=== PATIENT | female | born 1985 | race Caucasian/White ===

== ENCOUNTER 2016-09-08 00:54 | Inpatient (IN) | payer OTHER ==
[~2016-09-08] VITALS: Ht 160 cm; Wt 87.1 kg
[~2016-09-08 00:54] MED LIST: DCL500C PO; HYDR-4150 PO; IBUP800T28 PO; PREN1TAB69 PO; SERT20OR6 PO
[2016-09-09] MEDS ORDERED: Carboprost 250 mCg/mL Inj IM PRN (20:10)
[2016-09-09] MEDS ORDERED: Sodium Chloride LOK Flush 10 mL Syringe IVFLUSH PRN (20:10)
[2016-09-09] MEDS ORDERED: Methylergonovine 0.2 mg/mL Inj IM PRN (20:10)
[2016-09-09] MEDS ORDERED: Lactated Ringer's 1,000 ML IV PRN (20:10)
[2016-09-09] MEDS ORDERED: Ondansetron 2 mg/mL 2 mL Inj IVPUSH PRN ×2 (20:10→21:05)
[2016-09-09] MEDS ORDERED: Oxytocin 30 Units/500 mL LR 30 UNITS in IV Premix 1 EACH IV PRN (20:10)
[2016-09-09] MEDS ORDERED: Hemorrhage Kit, Post Partum XX ONE (20:10)
[2016-09-09] MEDS ORDERED: Oxytocin 10 Unit/mL Inj IM PRN (20:10)
[2016-09-09 20:48] LABS: Mean Corpuscular Volume 88.2 fL (81-100)
[2016-09-09] MEDS ORDERED: Lactated Ringer's 1,000 ML IV SCH (21:02)
[2016-09-09] MEDS ORDERED: Lactated Ringer's 500 ML IV ONE (21:02)
[2016-09-09] MEDS ORDERED: EPHEDrine Sulfate 50 mg/mL Inj IVPUSH PRN (21:05)
[2016-09-09] MEDS ORDERED: fentaNYL 2 mCg/mL-Bupiv 0.125% 100 ML EPIDURAL SCH (21:05)
[2016-09-09] MEDS ORDERED: Atropine 1 mg/10 mL (Code) Syringe IVPUSH PRN (21:05)
--- NOTE | 2016-09-09 21:56 | PCM.HPANE ---
Patient Data Surgeon Admitting Provider:Lebron Glover MD Attending Provider:Lebron Glover MD Primary Care Physician:Lebron Glover MD Other Provider: Reason for Visit Active Labor ACTIVE LABOR Ht/WT & BMI Body Mass Index Allergies Coded Allergies: Penicillins (Verified Allergy, Unknown, 01/16/15) ampicillin (Verified Allergy, Unknown, 01/16/15) vancomycin (Verified Adverse Reaction, Mild, ITCHING, 07/02/12) Past Anesthesia History Anesthesia History: Denies:: Abnormal Airway, Anesthesia Reactions, Difficult Intubation, Fam Anesthesia Reaction, Fam Malignant Hypertherm, Malignant Hyperthermia Medications Active Scripts Sertraline HCl (Sertraline)20 Mg/1 Ml Oral.conc75 Mg PO DAILY #1 BOTTLE Ref 0 Prov:Lebron Glover MD 01/17/15 Hydrocodone/Acetaminophen (Ayer 5-325 Tablet)1 Tablet Tablet1-2 Tablet PO Q4H PRN For Pain #20 TABLET Ref 0 Prov:Lebron Glover MD 01/17/15 Dicloxacillin 500 Mg [id number] Mg PO QID PRN mastitis #28 CAPSULE Ref 2 Prov:Lebron Glover MD 01/17/15 Ibuprofen 800 Mg [id number] Mg PO Q6H PRN For Pain #30 TABLET Ref 4 Prov:Lebron Glover MD 01/17/15 Reported Medications Vit/Fe Fumarate/Fa-Expunged Drug, Do (-Expunged Drug, Do Not Renew!)1 Each Tablet1 Each PO DAILY Ref 0 02/27/09 History History of ENT Problems?: No HEENT History: Denies:: Abnormal Airway Cataracts Difficult Intubation Dysphagia Glaucoma Hearing Problem Sinus Problem TMJ Denture Type: None Teeth Condition: Within Normal Limits Hx of Heart Problems?: No Cardiovascular History: Denies:: AICD Abdominal Aortic Aneurism Atrial Fibrillation Cardiac Surgery Chest Pain Congestive Heart Failure Coronary Artery Disease Edema Heart Murmur Hypertension Irregular Heartbeat Pacemaker Peripheral Vascular Rheumatic Fever Thrombophlebitis Valvular Heart Disease Hx of Respiratory Problem?: No Respiratory History: Denies:: Asthma COPD Chest Surgery Cough Dyspnea Emphysema Hemoptysis Oxygen Administration Pneumonia Pulmonary Embolism Tuberculosis Use of C-PAP Machine Use of Inhalers / NEBS Hx Neurologic Problems?: No Hx of GI Problems?: No Hx of Problems?: No HX of Peritoneal Dialysis: No Female Hx: Positive for:: Currently Hx Musculoskeletal Problems?: No Hx of Psycho/Social Problems?: No Hx Surgeries?: No Hx Any Other Health Problems?: No Hx Diabetes: No Hx Alcohol Use: NoHx Substance Use: No Smoking Status: Never Smoker Have You Smoked inLast 12 mo: No Stop/Bang Risk Assessment Category Category 1A: Patient has history of documented sleep apnea, and HAS NOT received any narcotic, sedative or anesthesia administration during this stay. Category 1B: Patient has history of documented sleep apnea, and HAS received any narcotic , sedative or anesthesia administration during this stay Category 2: Patient has SUSPECTED Obstructive Sleep Apnea, and HAS received any narcotic , sedative or anesthesia administration during this stay. Category 3: Patient has SUSPECTED Obstructive Sleep Apnea and HAS NOT received narcotic, sedative or anesthesia administration during this stay. Category 4: Outpatient in Procedural Areas with known sleep apnea or who screen positive for High Risk via the STOP/BANG questionnaire. Exam Exam General Appearance: Alert, Oriented X3 HEENT/AIRWAY: MP 2, Neck Movement (FROM) Lungs: Clear to Auscultation, Clear to Percussion Heart: Exam Unremarkable, Regular Rate/Rhythm Meds/Labs/Diagnostics Labs Test 09/09/16 20:10 White Blood Count 6.6th/mm3 (3.8-10.1) Red Blood Count 4.07mil/mm3 (3.90-5.20) Hemoglobin 11.8g/dL (12.0-15.6) Hematocrit 35.9% (35.0-46.0) Mean Corpuscular Volume 88.2fL (81-100) Mean Corpuscular Hemoglobin 29.0pg (27.0-35.0) Mean Corpuscular Hemoglobin Concent 32.9% (32.0-37.0) Red Cell Distribution Width 13.4% (12.3-15.4) Platelet Count 116bil/L (150-400) Plan Impression Patient chart reviewed, patient interviewed and anesthestic plan with risks, benefits, and alternatives discussed, and informed consent obtained. ASA Physical Status: ASA1 Normal Healthy Anesthetic Plan: Epidural Bene/Risks/Altern/Consents: Yes HP Complete Prior to Induction: Yes Edwin Manzanares MD Sep 09, 2016 21:02
--- NOTE | 2016-09-09 22:38 | HP ---
[address] [address] HISTORY AND PHYSICAL PATIENT: MAY SALEH : 1985 MR#: [id number] ADMIT: 09/09/2016 JOB ID: [id number] DATE OF SERVICE: 09/09/2016 CHIEF COMPLAINT: Increasing contractions at term. HISTORY OF PRESENT ILLNESS: A 30-year-old, 7, para 4 (three term, one pre term) SAB 2, living children 4, presents at 40 and 2/7th days gestation with increased bloody show this morning and then increased contractions after dinner tonight. In triage, she is found to be 4 cm, 80% effaced, -2 station, with somewhat irregular, but strong contractions. She has a history of rapid labors. She does want an epidural. ISSUES: 1. Anxiety/depression. 2. Excess weight. 3. History of very fast labors. 4. PENICILLIN and VANCOMYCIN allergies. 5. History of low platelets at term with no symptoms. 6. History of elevated blood pressure and gestational diabetes with her second . 7. Eighteen foot fall at 31 weeks gestation with a positive Kleihauer-Betke test, but negative serial ultrasounds. ALLERGIES: 1. PENICILLIN. 2. AMOXICILLIN. 3. VANCOMYCIN caused Red Man syndrome. CURRENT MEDICATIONS: 1. vitamins 1 tablet daily. 2. Sertraline 125 mg daily. 3. Ferrous sulfate 325 mg daily. SOCIAL HISTORY: She is , a mother of four. Nonsmoker. Drinks rare alcohol. None when . Has previously denied recreational drug use. PAST GYNECOLOGIC HISTORY: 7, para 4. In 2003, she delivered at 36 weeks gestation a 6 pound female. Pregnancies two and four ended in first trimester miscarriages. In 2008, she was induced at term due to elevated blood pressure and gestational diabetes. Went on to have an uncomplicated vaginal delivery to a male, 10 pounds 3 ounces. In 2012, she delivered at term induced due to history of precipitous/rapid deliveries and, indeed, had a rapid/precipitous delivery. Sixth was also at term, 8 pound 11 ounce female, induced due to history of rapid labors. She was noted to have low platelets at term. LABS: Blood type O positive. Rubella immune. Serology nonreactive. Hepatitis B surface antigen and HIV test negative. A1c at the onset of 5.7. Her recheck in June was 5.4. Pap was normal at the beginning of . Hematocrit at 30 weeks was 34.6. Glucose tolerance test was 81 fasting, 1 hour at 173, 2 hours 103. Gonorrhea and Chlamydia cultures were negative in February 2016. Urine culture at that time showed no growth. She is GBS negative, screened August 11, 2016. She declined risk testing. PHYSICAL EXAMINATION: Please see nursing notes for admitting vitals signs. GENERAL: She is a moderately uncomfortable laboring woman who, after epidural, is rechecked by myself and found to be 6 cm dilated, vertex position, -2 station, 80% effaced. Tocometer shows contractions every 3-4 minutes, somewhat irregularly faced. heart tracing shows a baseline in the 130s to 140s with numerous accelerations, at least 15/15, consistent with a category 1 tracing. ASSESSMENT: 1. Gravid at term. 2. Active labor. 3. History of fast labors. 4. PENICILLIN, AMOXICILLIN, and VANCOMYCIN allergies. 5. History of low platelets at term. They currently returned 116,000. 6. Anxiety, currently on sertraline 125 mg daily. 7. Eighteen foot fall this with a positive Kleihauer-Betke test at a different facility. Serial ultrasounds showed normal growth, normal middle cerebral artery Dopplers, and no evidence of other abnormality. PLAN: Patient is comfortable with an epidural. Would prefer not rupture her membranes just yet. Otherwise, continue expectant management. She is GBS negative.
[2016-09-10] MEDS ORDERED: Sodium Chloride LOK Flush 10 mL Syringe IVFLUSH SCH (00:30)
[2016-09-10] MEDS ORDERED: Carboprost 250 mCg/mL Inj IM PRN (00:40)
[2016-09-10] MEDS ORDERED: Lactated Ringer's 1,000 ML IV SCH (00:40)
[2016-09-10] MEDS ORDERED: Oxytocin 10 Unit/mL Inj IM PRN (00:40)
[2016-09-10] MEDS ORDERED: Methylergonovine 0.2 mg/mL Inj IM PRN (00:40)
[2016-09-10] MEDS ORDERED: Oxytocin 30 Units/500 mL LR 30 UNITS in IV Premix 1 EACH IV PRN (00:40)
[2016-09-10] MEDS ORDERED: Hemorrhage Kit, Post Partum XX ONE (00:40)
--- NOTE | 2016-09-10 02:06 | OP ---
[address] [address] OPERATIVE REPORT PATIENT: MAY SALEH : 1985 MR#: [id number] ADMIT: 09/09/2016 JOB ID: [id number] DELIVERY NOTE Date of delivery: 09/10/2016 Delivery position: OA. Umbilical cord: Normal appearance and length, three-vessel cord, nuchal cord x1. Placenta: Large normal placenta consistent with a large normal infant, central cord insertion. Delivery weight: 8 pounds 13 ounces; 3997 grams. Apgars: 6, 8, and 9 at 1, 5, and 10 minutes respectively. Complications: Nuchal cord x1. Lacerations: None. EBL: 100 cc. Anesthesia: Epidural. DELIVERY SUMMARY: The patient developed increasing pelvic pressure with a strong urge to push. She pushed for only a few minutes. Head delivered in direct OA position. Nuchal cord was identified and immediately reduced. Body and shoulders delivered without difficulty. was handed off to mother and nursing for stimulation. Cord was clamped after approximately 60 second delay. Placenta delivered spontaneously with gentle traction on the cord. Perineum was inspected and showed no lacerations requiring repair. IV oxytocin is being instituted and bleeding is slowing. Fundus is firm. Sponge and needle counts are correct after delivery. Mother plans to bottle feed. MTDD
[2016-09-10] MEDS ORDERED: Multivit-Miner-Folic Acid-Iron Tablet PO SCH (08:30)
[2016-09-10] MEDS: HYDROcodone-APAP 5-325 mg Tablet PO PRN ×3 (11:58→22:39)
[2016-09-10] MEDS ORDERED: Benzocaine (Dermoplast) 20% 60 Gm Spray TOPICAL PRN (13:50)
[2016-09-10] MEDS ORDERED: Witch Hazel-Glycerin Pads TOPICAL PRN (13:50)
[2016-09-10] MEDS: Multivit-Miner-Folic Acid-Iron Tablet PO SCH (14:38)
[2016-09-11] MEDS: HYDROcodone-APAP 5-325 mg Tablet PO PRN ×2 (03:04→08:22)
[2016-09-11 07:01] LABS: Mean Corpuscular Hemoglobin 28.7 pg (27.0-35.0); Mean Corpuscular Volume 90.2 fL (81-100)
[2016-09-11] MEDS: Multivit-Miner-Folic Acid-Iron Tablet PO SCH (08:22)
--- NOTE | 2016-09-11 10:02 | PCM.DIOB ---
Obstetrical Disch Instruction Date of Service: Sep 11, 2016 Dates of Hospitalization Date of Hospital Admission Sep 09, 2016 at 20:05 Providers Admitting Physician: Lebron Glover MD Primary Care Physician: Lebron Glover MD Attending Physician: Lebron Glover MD Discharge Diagnosis Problems: (1) Encounter for full-term uncomplicated delivery Status: Acute ICD Code: O80 (2) Thrombocytopenia Plan: Mild, asymptomatic. Status: Acute ICD Code: D69.6 Diet Discharge Diet: No restrictions Activity Discharge Activity-General: No restrictions Dressing and Incisional Care Hygiene: May shower Follow Up Plan Follow-up Provider (F9): Lebron Glover MD Follow-up appointment: Weeks (6) Call your provider for: Fever or Chills, Shortness of breath, Heavy vaginal bleeding, Excessive constipation, Red painful breasts Lebron Glover MD Sep 11, 2016 10:02
[2016-09-11] MEDS ORDERED: DOCU-41 PO (10:07)
[2016-09-11] MEDS ORDERED: CLIN300C3 PO (10:07)
[2016-09-11] MEDS ORDERED: IBUP-1827 PO (10:07)
[2016-09-11] MEDS ORDERED: HYDR-4003 PO (10:07)
[2016-09-11] MEDS ORDERED: SERT50TA9 PO (10:07)
[2016-09-11 10:23] VITALS: BP 106/63; PULSE 61; RESP 16
--- NOTE | 2016-09-11 10:24 | DIS ---
[address] [address] DISCHARGE SUMMARY PATIENT: MAY SALEH : 1985 MR#: [id number] ADMIT: 09/09/2016 JOB ID: [id number] DIS: DISCHARGE DIAGNOSES: 1. Spontaneous vaginal delivery at term. 2. Mild thrombocytopenia, asymptomatic, common for patient at term. 3. Anxiety controlled with sertraline. 4. History of fast labors. 5. PENICILLIN, AMOXICILLIN, and VANCOMYCIN allergies. 6. History of elevated blood pressure and gestational diabetes with her 2nd , but no issues this . 7. History of 18 foot fall at 31 weeks with a positive Kleihauer Betke test, normal serial ultrasounds thereafterwards. 8. History of recurrent mastitis, patient elects not to breast feed. DISCHARGE MEDICATIONS: 1. vitamins 1 tablet daily. 2. Sertraline 125 mg daily. 3. Ibuprofen 600 mg q.6 hours p.r.n. pain. 4. Vicodin one to two tablets 5/325 mg q.4 hours p.r.n. pain, #10, no refills. 5. Docusate sodium 100 mg p.o. b.i.d. p.r.n. constipation. 6. Continue vitamins 1 tablet daily. 7. Clindamycin 300 mg q.i.d. for a week p.r.n. mastitis. DISCHARGE INSTRUCTIONS: 1. Diet ad lydia. 2. Activity ad lydia. 3. May shower or bathe. 4. Follow up at [address] Glover. 5. Call for increased bleeding, breast pain or tenderness, fevers, shortness of breath, et cetera. HOSPITAL COURSE: Patient is a now 30-year-old, 7 para 5 SAB 2 who presented at 40 and 2/7 weeks in active labor. She went on to have an uncomplicated vaginal delivery of an 8 pound 13 ounce (3997 g) viable male in OA position. There was a single nuchal cord, which was easily reduced after delivery of the head. Infant did require additional stimulation with Apgars of 6, 8, and 9 at 1, 5, and 10 minutes respectively. Patient sustained no lacerations. Her blood loss was minimal. she is caring for her infant well. She is afebrile. Her fundus is firm at the umbilicus. Her platelets had dropped from an admit value of 116,000 to 100,000. She has a history of mild thrombocytopenia without symptoms in many of her prior deliveries. This tends to resolve on its own, and she has no excessive bleeding. No workup is anticipated at present. Patient has a history of anxiety, wishes to continue sertraline 125 mg daily for this. Will discuss possibility of a gradual taper outpatient. Patient has a history of recurrent mastitis with prior breast-feeding efforts and prefers not to breast-feed. She requests clindamycin to have on hand in case of mastitis which has occurred for her when she has tried to stopped feeding. DISPOSITION: Patient will follow up with her infant tomorrow in my office, otherwise at 6 weeks. She has excellent social support. She has an experienced mother. I anticipate no major issues. MAN
== END 2016-09-11 11:25 | disposition home or self-care (01) | DRG 775 ==
LOC: FBC 09-09 20:05
PROVIDERS: ADMIT Family Medicine; ATTEND Family Medicine
PROC: 10E0XZZ Delivery of Products of Conception, External Approach (ICD-10-PCS; principal; 2016-09-10)
DX: O69.81X0 Labor and delivery complicated by cord around neck, without compression, not applicable or unspecified (principal); O99.344 Other mental disorders complicating childbirth; F41.9 Anxiety disorder, unspecified; Z88.1 Allergy status to other antibiotic agents; Z88.0 Allergy status to penicillin; Z3A.40 40 weeks gestation of pregnancy; Z37.0 Single live birth